=== PATIENT | male | born 1950 | race African-American/Black ===

== ENCOUNTER 2022-02-10 18:24 | Inpatient (IN) | payer OTHER ==
[~2022-02-10] VITALS: Ht 175.3 cm; Wt 129.3 kg
[2022-02-10 22:36] LABS: HEMATOCRIT. 30.9 % (42.0-52.0); HEMOGLOBIN. 10.5 g/dL (14.0-18.0); MEAN CORPUSCULAR HEMOGLOBIN 30.4 pg (28.0-32.0); MEAN CORPUSCULAR VOLUME 89.8 fL (80.0-94.0); MEAN PLATELET VOLUME 10.4 fl (7.4-10.4); PLATELET 199 x1000/uL (130-400); RED BLOOD CELL COUNT 3.44 mill/uL (4.7-6.1); RED CELL DISTRIBUTION WIDTH 17.8 % (11.6-14.6)
[2022-02-10 22:43] LABS: CHLORIDE 103 mEq/L (98-107)
[2022-02-10 23:57] LABS: INR 2.4; PARTIAL THROMBOPLASTIN TIME 42.8 sec (23.4-31.0); PROTHROMBIN TIME 23.9 sec (9.6-11.0)
[2022-02-11] MEDS ORDERED: SODIUM CHLORIDE 0.9% 500 ML IV ONE
[2022-02-11] MEDS ORDERED: SODIUM CHLORIDE 0.9% 1,000 ML IV SCH (00:15)
[2022-02-11] MEDS ORDERED: MAGNESIUM/ALUMINUM HYDROXIDE/SIMETHICONE 30ML UDC PO PRN (00:15)
[2022-02-11] MEDS ORDERED: DOCUSATE SODIUM 100MG CAPSULE PO PRN (00:15)
[2022-02-11] MEDS ORDERED: TRAMADOL 50MG TABLET PO PRN (00:15)
[2022-02-11] MEDS ORDERED: GUAIFENESIN 200MG/10ML SUGAR FREE UDC PO PRN (00:15)
[2022-02-11 00:34] LABS: PLATELET ESTIMATE NORMAL
[2022-02-11] MEDS ORDERED: PIPERACILLIN/TAZ 3.375G PREMIX 50 ML IV NR (01:00)
[2022-02-11] MEDS ORDERED: VANCOMYCIN 1G PREMIX 200 ML IV NR (01:00)
[2022-02-11 05:00] VITALS: BP 92/50
[2022-02-11] MEDS ORDERED: DEXTROSE 50% WATER 50ML SYRINGE IV PRN (06:00)
[2022-02-11] MEDS: BLOOD SUGAR DIAGNOSTIC STRIP TEST SCH ×4 (06:40→20:29)
[2022-02-11] MEDS: INSULIN LISPRO 100 UNITS/ML SUBCUT SCH ×4 (07:50→20:55)
[2022-02-11 08:00] VITALS: BP_SYST 116; BP_DIAS 55; BP_DIAS 58
[2022-02-11 08:27] LABS: CLARITY URINE CLOUDY (CLEAR); COLOR URINE DARK YELLOW (YELLOW); KETONES URINE NEGATIVE (NEGATIVE); LEUKOCYTE ESTERASE URINE NEGATIVE (NEGATIVE); NITRITE URINE NEGATIVE (NEGATIVE); OCCULT BLOOD URINE NEGATIVE (NEGATIVE); PH URINE 5.5 (4.5-8.0); PROTEIN URINE 1+ (NEGATIVE); SPECIFIC GRAVITY URINE 1.036 (1.005-1.030); UROBILINOGEN URINE 0.2 E.U./dL (0.2-1.0)
[2022-02-11] MEDS: AMLODIPINE 10MG TABLET PO SCH (09:13)
[2022-02-11] MEDS: ENOXAPARIN 40MG/0.4ML SYR SUBCUT SCH (09:14)
[2022-02-11] MEDS ORDERED: NALOXONE HCL 0.4MG/ML VIAL IV PRN (10:45)
[2022-02-11 12:00] VITALS: BP 111/49
[2022-02-11] MEDS: TAMSULOSIN HCL 0.4MG SR CAPSULE PO SCH (12:25)
[2022-02-11] MEDS: SODIUM BICARBONATE 100 MEQ in DEXTROSE 5% WATER 1,000 ML IV SCH (14:17)
[2022-02-11 16:30] VITALS: BP 117/46
[2022-02-11 17:02] LABS: TOTAL IRON BINDING CAPACITY 143 ug/dL (250-450)
[2022-02-11 17:21] LABS: PROSTRATE SPECIFIC AG TOTAL 24.78 ng/mL (0.0-4.0)
[2022-02-11 17:30] LABS: VITAMIN B12 SERUM >2000 pg/mL pg/mL (211-911)
[2022-02-11 17:42] LABS: CARCINO EMBRYONIC ANTIGEN 1311.4 ng/ml; FERRITIN 4690 ng/mL (22-322)
[2022-02-11 18:32] LABS: CREATINE KINASE 354 IU/L (39-308)
[2022-02-11 20:00] VITALS: BP 105/61
[2022-02-12] VITALS (13 sets, daily range): BP systolic 92–112; BP diastolic 38–56
[2022-02-12] MEDS: ONDANSETRON HCL 4MG/2ML INJ IV PRN (04:19)
[2022-02-12] MEDS: SODIUM BICARBONATE 100 MEQ in DEXTROSE 5% WATER 1,000 ML IV SCH ×2 (04:50→23:54)
[2022-02-12] MEDS: BLOOD SUGAR DIAGNOSTIC STRIP TEST SCH ×4 (06:31→20:12)
[2022-02-12 07:42] LABS: CHLORIDE 98 mEq/L (98-107)
[2022-02-12 07:45] LABS: HEMOGLOBIN. 9.6 g/dL (14.0-18.0); MEAN CORPUSCULAR HEMOGLOBIN 30.1 pg (28.0-32.0); MEAN CORPUSCULAR VOLUME 90.6 fL (80.0-94.0); MEAN PLATELET VOLUME 10.1 fl (7.4-10.4); PLATELET 208 x1000/uL (130-400); RED CELL DISTRIBUTION WIDTH 17.6 % (11.6-14.6)
[2022-02-12] MEDS: INSULIN LISPRO 100 UNITS/ML SUBCUT SCH ×4 (07:50→20:13)
[2022-02-12 07:55] LABS: HDL CHOLESTEROL 8 mg/dL (40-59); LDL CHOLESTEROL 41 mg/dL (5-100)
[2022-02-12] MEDS ORDERED: LORAZEPAM 2MG/ML CPJ IV PRN (09:00)
[2022-02-12] MEDS: TAMSULOSIN HCL 0.4MG SR CAPSULE PO SCH (09:00)
[2022-02-12] MEDS: AMLODIPINE 10MG TABLET PO SCH (09:00)
[2022-02-12] MEDS ORDERED: PHYTONADIONE 10MG/ML AMP SUBCUT NR ×2 (09:15→19:44)
[2022-02-12] MEDS: ENOXAPARIN 40MG/0.4ML SYR SUBCUT SCH (10:33)
[2022-02-12 12:06] LABS: HEPATITIS B SURFACE ANTIGEN NEGATIVE
[2022-02-12] MEDS ORDERED: LIDOCAINE HCL/PF 1% 10 MG/ML 5ML VIAL ONE (13:14)
[2022-02-12 14:53] LABS: PROTHROMBIN TIME 45.5 sec (9.6-11.0)
[2022-02-12 16:00] LABS: INR 4.8
[2022-02-12] MEDS ORDERED: PANTOT AC/MIN OIL/PET HY-PHL OINT (AQUAPHOR) TOP SCH (21:45)
[2022-02-13] VITALS (13 sets, daily range): BP systolic 103–128; BP diastolic 48–69
[2022-02-13 03:38] LABS: PROTHROMBIN TIME 20.8 sec (9.6-11.0)
[2022-02-13] MEDS: BLOOD SUGAR DIAGNOSTIC STRIP TEST SCH ×4 (06:25→21:46)
[2022-02-13] MEDS: INSULIN LISPRO 100 UNITS/ML SUBCUT SCH ×4 (07:50→21:00)
[2022-02-13 08:12] LABS: HEMATOCRIT. 28.7 % (42.0-52.0); HEMOGLOBIN. 9.7 g/dL (14.0-18.0); MEAN CORPUSCULAR HEMOGLOBIN 30.6 pg (28.0-32.0); MEAN CORPUSCULAR VOLUME 90.6 fL (80.0-94.0); MEAN PLATELET VOLUME 10.1 fl (7.4-10.4); PLATELET 206 x1000/uL (130-400); RED BLOOD CELL COUNT 3.17 mill/uL (4.7-6.1); RED CELL DISTRIBUTION WIDTH 17.7 % (11.6-14.6)
[2022-02-13] MEDS ORDERED: PHYTONADIONE 10MG/ML AMP SUBCUT NR ×2 (09:00)
[2022-02-13] MEDS: TAMSULOSIN HCL 0.4MG SR CAPSULE PO SCH (10:21)
[2022-02-13] MEDS: AMLODIPINE 10MG TABLET PO SCH (10:21)
[2022-02-13] MEDS: PHYTONADIONE 10MG/ML AMP SUBCUT SCH (10:22)
[2022-02-13] MEDS: GUAIFENESIN 600MG ER TABLET PO SCH ×2 (10:22→22:32)
[2022-02-13] MEDS: PANTOT AC/MIN OIL/PET HY-PHL OINT (AQUAPHOR) TOP SCH ×2 (10:38→16:24)
[2022-02-13 11:02] LABS: PLATELET ESTIMATE NORMAL
[2022-02-13] MEDS ORDERED: SODIUM POLYSTYRENE SULFONATE 15 G/60 ML BOT PO NR (21:45)
[2022-02-14] VITALS (8 sets, daily range): BP systolic 94–114; BP diastolic 50–65
[2022-02-14] MEDS: INSULIN LISPRO 100 UNITS/ML SUBCUT SCH ×4 (06:55→21:00)
[2022-02-14] MEDS: BLOOD SUGAR DIAGNOSTIC STRIP TEST SCH ×4 (06:55→21:12)
[2022-02-14 07:55] LABS: PLATELET ESTIMATE NORMAL
[2022-02-14] MEDS: TAMSULOSIN HCL 0.4MG SR CAPSULE PO SCH (09:25)
[2022-02-14] MEDS: AMLODIPINE 10MG TABLET PO SCH (09:25)
[2022-02-14] MEDS: PHYTONADIONE 10MG/ML AMP SUBCUT SCH (09:26)
[2022-02-14] MEDS: GUAIFENESIN 600MG ER TABLET PO SCH ×2 (09:26→21:13)
[2022-02-14] MEDS: PANTOT AC/MIN OIL/PET HY-PHL OINT (AQUAPHOR) TOP SCH ×2 (09:32→16:42)
[2022-02-14 11:42] LABS: HEMATOCRIT. 29.8 % (42.0-52.0); HEMOGLOBIN. 10.2 g/dL (14.0-18.0); MEAN CORPUSCULAR HEMOGLOBIN 30.7 pg (28.0-32.0); MEAN CORPUSCULAR VOLUME 89.4 fL (80.0-94.0); MEAN PLATELET VOLUME 9.9 fl (7.4-10.4); PLATELET 195 x1000/uL (130-400); RED BLOOD CELL COUNT 3.34 mill/uL (4.7-6.1); RED CELL DISTRIBUTION WIDTH 17.7 % (11.6-14.6)
[2022-02-14] MEDS: SODIUM BICARBONATE 100 MEQ in DEXTROSE 5% WATER 1,000 ML IV SCH (13:08)
[2022-02-14 15:37] LABS: NUCLEATED RED BLOOD CELLS 2 /100 WBC
[2022-02-14 15:38] LABS: PLATELET ESTIMATE NORMAL
[2022-02-15] VITALS (38 sets, daily range): BP systolic 63–173; BP diastolic 28–87
[2022-02-15] MEDS: BLOOD SUGAR DIAGNOSTIC STRIP TEST SCH ×4 (06:35→21:00)
[2022-02-15] MEDS: INSULIN LISPRO 100 UNITS/ML SUBCUT SCH ×4 (06:53→21:00)
[2022-02-15 07:48] LABS: BASOPHILS % 0.2 % (0.0-2.0); EOSINOPHILS % 0.1 % (0.0-5.0); HEMATOCRIT. 24.9 % (42.0-52.0); HEMOGLOBIN. 8.4 g/dL (14.0-18.0); LYMPHOCYTES % 21.5 % (20.0-50.0); MEAN CORPUSCULAR HEMOGLOBIN 31.1 pg (28.0-32.0); MEAN CORPUSCULAR VOLUME 92.6 fL (80.0-94.0); MEAN PLATELET VOLUME 10.2 fl (7.4-10.4); MONOCYTES % 6.5 % (2.0-8.0); NEUTROPHILS % 71.7 % (40.0-76.0); PLATELET 201 x1000/uL (130-400); RED BLOOD CELL COUNT 2.69 mill/uL (4.7-6.1); RED CELL DISTRIBUTION WIDTH 18.5 % (11.6-14.6)
[2022-02-15] MEDS: AMLODIPINE 10MG TABLET PO SCH (09:00)
[2022-02-15] MEDS: SODIUM BICARBONATE 100 MEQ in DEXTROSE 5% WATER 1,000 ML IV SCH (09:12)
[2022-02-15] MEDS: PHYTONADIONE 10MG/ML AMP SUBCUT SCH (09:13)
[2022-02-15] MEDS: TAMSULOSIN HCL 0.4MG SR CAPSULE PO SCH (09:13)
[2022-02-15] MEDS: GUAIFENESIN 600MG ER TABLET PO SCH ×2 (09:14→22:14)
[2022-02-15] MEDS: PANTOT AC/MIN OIL/PET HY-PHL OINT (AQUAPHOR) TOP SCH ×2 (09:14→17:00)
[2022-02-15] MEDS ORDERED: NOREPINEPHRINE 8 MG in DEXT 5% WATER 242 ML IV PRN (15:00)
[2022-02-15 15:20] LABS: BG BASE EXCESS -6.6 mmol/L (-2.0-2.0); BG CARBOXYHEMOGLOBIN 2.1 % (0.5-1.5); BG FRACTION INSPIRED OXYGEN 44; BG HCO3 ACT 21.6 mmol/L (22.0-26.0); BG OXYGEN SATURATION 79.6 % (92.0-98.5); BG OXYHEMOGLOBIN 77.9 % (94.0-97.0); BG PH 7.204 (7.350-7.450); BG PO2 55.5 mmHg (75.0-100.0); BG SAMPLE SITE LEFT BRACHIAL; BG TOTAL HEMOGLOBIN 10.9 g/dL (12.0-18.0); BG VENT MODE NASAL CANNULA
[2022-02-15] MEDS: NOREPINEPHRINE 32 MG in DEXT 5% WATER 218 ML IV PRN (16:05)
[2022-02-15] MEDS ORDERED: FENTANYL 2500MCG/250ML PMX 250 ML IV ONE (17:15)
[2022-02-15] MEDS ORDERED: MIDAZOLAM HCL 100 MG in SODIUM CHLORIDE 0.9% 100 ML IV PRN (17:15)
[2022-02-15] MEDS ORDERED: MIDAZOLAM 100MG/100ML PMX 100 ML IV PRN (17:15)
[2022-02-15 17:25] LABS: BG BASE EXCESS -7.2 mmol/L (-2.0-2.0); BG CARBOXYHEMOGLOBIN 1.6 % (0.5-1.5); BG HCO3 ACT 18.7 mmol/L (22.0-26.0); BG METHEMOGLOBIN 0.2 % (0.0-1.5); BG OXYGEN SATURATION 93.9 % (92.0-98.5); BG OXYHEMOGLOBIN 92.2 % (94.0-97.0); BG PCO2 38.9 mmHg (35.0-45.0); BG PH 7.299 (7.350-7.450); BG PO2 78.8 mmHg (75.0-100.0); BG SAMPLE SITE ALINE; BG TOTAL HEMOGLOBIN 11.2 g/dL (12.0-18.0); BG VENT MODE VENT - AC
[2022-02-15] MEDS: DEXAMETHASONE 4MG/ML 1ML VIAL IV SCH (18:17)
[2022-02-15] MEDS: LACTULOSE 20G/30ML UDC PO SCH (22:14)
[2022-02-15] MEDS: PIPERACILLIN/TAZOBACTAM 3.375 G in DEXTROSE 5% WATER 50 ML IV SCH (22:14)
[2022-02-15] MEDS: FENTANYL CITRATE 2,500 MCG in SODIUM CHLORIDE 0.9% 200 ML IV PRN (22:16)
[2022-02-16] VITALS (97 sets, daily range): BP systolic 69–198; BP diastolic 39–129
[2022-02-16 05:03] LABS: HEMOGLOBIN. 10.4 g/dL (14.0-18.0); MEAN CORPUSCULAR HEMOGLOBIN 30.4 pg (28.0-32.0); MEAN CORPUSCULAR VOLUME 90.6 fL (80.0-94.0); PLATELET 184 x1000/uL (130-400); RED BLOOD CELL COUNT 3.42 mill/uL (4.7-6.1); RED CELL DISTRIBUTION WIDTH 17.8 % (11.6-14.6)
[2022-02-16] MEDS: BLOOD SUGAR DIAGNOSTIC STRIP TEST SCH ×4 (06:21→21:00)
[2022-02-16] MEDS: LACTULOSE 20G/30ML UDC PO SCH (06:30)
[2022-02-16] MEDS: SODIUM BICARBONATE 100 MEQ in DEXTROSE 5% WATER 1,000 ML IV SCH ×2 (06:30→21:22)
[2022-02-16] MEDS: INSULIN LISPRO 100 UNITS/ML SUBCUT SCH ×4 (06:31→21:00)
[2022-02-16 08:03] LABS: BG BASE EXCESS -5.5 mmol/L (-2.0-2.0); BG HCO3 ACT 19.7 mmol/L (22.0-26.0); BG METHEMOGLOBIN 0.1 % (0.0-1.5); BG OXYHEMOGLOBIN 94.9 % (94.0-97.0); BG PCO2 37.6 mmHg (35.0-45.0); BG PH 7.338 (7.350-7.450); BG PO2 88.3 mmHg (75.0-100.0); BG SAMPLE SITE ALINE; BG TOTAL HEMOGLOBIN 10.8 g/dL (12.0-18.0); BG VENT MODE VENT - AC
[2022-02-16] MEDS: AMLODIPINE 10MG TABLET PO SCH (08:15)
[2022-02-16] MEDS: TAMSULOSIN HCL 0.4MG SR CAPSULE PO SCH (08:47)
[2022-02-16] MEDS: PIPERACILLIN/TAZOBACTAM 3.375 G in DEXTROSE 5% WATER 50 ML IV SCH ×2 (08:48→21:22)
[2022-02-16] MEDS: DEXAMETHASONE 4MG/ML 1ML VIAL IV SCH (09:06)
[2022-02-16 13:24] LABS: PLATELET ESTIMATE NORMAL
[2022-02-16] MEDS ORDERED: ACETYLCYSTEINE 100MG/ML 10% VIAL 4ML INH SCH (14:00)
[2022-02-16] MEDS: PANTOT AC/MIN OIL/PET HY-PHL OINT (AQUAPHOR) TOP SCH (17:00)
[2022-02-16] MEDS: NOREPINEPHRINE 32 MG in DEXT 5% WATER 218 ML IV PRN (19:13)
[2022-02-16] MEDS: FENTANYL CITRATE 2,500 MCG in SODIUM CHLORIDE 0.9% 200 ML IV PRN (19:14)
[2022-02-17] VITALS (94 sets, daily range): BP systolic 59–224; BP diastolic 33–90
[2022-02-17 06:41] LABS: HEMATOCRIT 29.9 % (42.0-52.0); HEMOGLOBIN 10.2 g/dL (14.0-18.0); MEAN CORPUSCULAR VOLUME 91.1 fL (80.0-94.0); PLATELET 147 x1000/uL (130-400); RED BLOOD CELL COUNT 3.29 mill/uL (4.7-6.1); RED CELL DISTRIBUTION WIDTH 17.6 % (11.6-14.6)
[2022-02-17] MEDS: BLOOD SUGAR DIAGNOSTIC STRIP TEST SCH ×4 (07:00→23:50)
[2022-02-17] MEDS: INSULIN LISPRO 100 UNITS/ML SUBCUT SCH ×3 (07:00→18:00)
[2022-02-17 08:50] LABS: BG CARBOXYHEMOGLOBIN 1.3 % (0.5-1.5); BG DEOXYHEMOGLOBIN 4.7 % (0.0-5.0); BG FRACTION INSPIRED OXYGEN 80; BG HCO3 ACT 16.4 mmol/L (22.0-26.0); BG METHEMOGLOBIN 0.1 % (0.0-1.5); BG OXYGEN SATURATION 95.2 % (92.0-98.5); BG OXYHEMOGLOBIN 93.9 % (94.0-97.0); BG PCO2 33.6 mmHg (35.0-45.0); BG PH 7.306 (7.350-7.450); BG PO2 81.2 mmHg (75.0-100.0); BG SAMPLE SITE ALINE; BG TOTAL HEMOGLOBIN 11.3 g/dL (12.0-18.0); BG VENT MODE VENT - AC
[2022-02-17] MEDS: TAMSULOSIN HCL 0.4MG SR CAPSULE PO SCH (09:00)
[2022-02-17] MEDS: DEXAMETHASONE 4MG/ML 1ML VIAL IV SCH (09:00)
[2022-02-17] MEDS: AMLODIPINE 10MG TABLET PO SCH (09:00)
[2022-02-17] MEDS: PANTOT AC/MIN OIL/PET HY-PHL OINT (AQUAPHOR) TOP SCH ×2 (09:00→17:00)
[2022-02-17] MEDS: PIPERACILLIN/TAZOBACTAM 3.375 G in DEXTROSE 5% WATER 50 ML IV SCH ×2 (09:00→20:55)
[2022-02-17 09:09] LABS: ANTI-NUCLEAR ANTIBODIES DIRECT Negative (Negative)
[2022-02-17] MEDS: NOREPINEPHRINE 32 MG in DEXT 5% WATER 218 ML IV PRN ×2 (10:00→15:56)
[2022-02-17] MEDS: FENTANYL CITRATE 2,500 MCG in SODIUM CHLORIDE 0.9% 200 ML IV PRN (13:26)
[2022-02-17 13:46] LABS: BG BASE EXCESS -8.2 mmol/L (-2.0-2.0); BG CARBOXYHEMOGLOBIN 0.4 % (0.5-1.5); BG DEOXYHEMOGLOBIN 3.7 % (0.0-5.0); BG FRACTION INSPIRED OXYGEN 100; BG METHEMOGLOBIN 0.5 % (0.0-1.5); BG OXYGEN SATURATION 96.3 % (92.0-98.5); BG OXYHEMOGLOBIN 95.4 % (94.0-97.0); BG PCO2 33.9 mmHg (35.0-45.0); BG PH 7.318 (7.350-7.450); BG PO2 89.8 mmHg (75.0-100.0); BG SAMPLE SITE ALINE; BG TOTAL HEMOGLOBIN 11.4 g/dL (12.0-18.0); BG VENT MODE VENT - AC
[2022-02-17] MEDS ORDERED: SODIUM BICARBONATE 8.4% 1 MEQ/ML 50ML SYR IV NR (14:15)
[2022-02-17] MEDS: SODIUM BICARBONATE 100 MEQ in DEXTROSE 5% WATER 1,000 ML IV SCH (18:23)
[2022-02-17] MEDS ORDERED: PANTOPRAZOLE SODIUM 40 MG/VIAL IV NR (22:00)
[2022-02-17] MEDS ORDERED: PANTOPRAZOLE SODIUM 40 MG/VIAL IV ONE (22:00)
[2022-02-18] VITALS (91 sets, daily range): BP systolic 57–178; BP diastolic 40–111
[2022-02-18] MEDS: ACETYLCYSTEINE 200MG/ML 20% VIAL 4ML INH SCH ×3 (00:22→16:14)
[2022-02-18] MEDS: IPRATROPIUM/ALBUTEROL 0.5-3(2.5)MG/3ML NEB HHN PRN ×2 (00:22→16:14)
[2022-02-18] MEDS: INSULIN LISPRO 100 UNITS/ML SUBCUT SCH ×4 (00:25→18:29)
[2022-02-18] MEDS: NOREPINEPHRINE 32 MG in DEXT 5% WATER 218 ML IV PRN ×3 (03:15→21:39)
[2022-02-18] MEDS: BLOOD SUGAR DIAGNOSTIC STRIP TEST SCH ×3 (05:49→18:00)
[2022-02-18 07:33] LABS: BG CARBOXYHEMOGLOBIN 0.5 % (0.5-1.5); BG DEOXYHEMOGLOBIN 2.9 % (0.0-5.0); BG HCO3 ACT 17.5 mmol/L (22.0-26.0); BG METHEMOGLOBIN 0.2 % (0.0-1.5); BG OXYGEN SATURATION 97.1 % (92.0-98.5); BG OXYHEMOGLOBIN 96.4 % (94.0-97.0); BG PH 7.355 (7.350-7.450); BG PO2 100.3 mmHg (75.0-100.0); BG SAMPLE SITE ALINE; BG VENT MODE VENT - AC
[2022-02-18 07:56] LABS: HEMATOCRIT. 32.7 % (42.0-52.0); MEAN CORPUSCULAR HEMOGLOBIN 30.7 pg (28.0-32.0); MEAN CORPUSCULAR VOLUME 91.4 fL (80.0-94.0); MEAN PLATELET VOLUME 10.6 fl (7.4-10.4); PLATELET 158 x1000/uL (130-400); RED BLOOD CELL COUNT 3.58 mill/uL (4.7-6.1); RED CELL DISTRIBUTION WIDTH 17.8 % (11.6-14.6)
[2022-02-18] MEDS ORDERED: PHENYLEPHRINE 100 MG in DEXT 5% WATER 240 ML IV PRN (08:00)
[2022-02-18] MEDS: DEXAMETHASONE 4MG/ML 1ML VIAL IV SCH (08:19)
[2022-02-18] MEDS: CITRIC ACID/SODIUM CITRATE SOLN 30ML UDC PO SCH ×3 (08:20→16:38)
[2022-02-18] MEDS: PIPERACILLIN/TAZOBACTAM 3.375 G in DEXTROSE 5% WATER 50 ML IV SCH ×2 (08:20→20:42)
[2022-02-18] MEDS: TAMSULOSIN HCL 0.4MG SR CAPSULE PO SCH (08:21)
[2022-02-18] MEDS: PANTOPRAZOLE SODIUM 40 MG/VIAL IV SCH (08:21)
[2022-02-18] MEDS: FOLIC ACID/VITAMIN B COMP W-C TABLET NG SCH (08:24)
[2022-02-18] MEDS: PANTOT AC/MIN OIL/PET HY-PHL OINT (AQUAPHOR) TOP SCH ×2 (08:24→17:05)
[2022-02-18] MEDS: AMLODIPINE 10MG TABLET PO SCH (09:00)
[2022-02-18 09:32] LABS: PLATELET ESTIMATE NORMAL
[2022-02-18] MEDS: MIDODRINE HCL 5MG TABLET PO SCH ×3 (15:43→17:32)
[2022-02-18] MEDS: FENTANYL CITRATE 2,500 MCG in SODIUM CHLORIDE 0.9% 200 ML IV PRN (21:40)
[2022-02-19] VITALS (96 sets, daily range): BP systolic 53–166; BP diastolic 30–181
[2022-02-19] MEDS: BLOOD SUGAR DIAGNOSTIC STRIP TEST SCH ×4 (00:53→17:26)
[2022-02-19] MEDS: IPRATROPIUM/ALBUTEROL 0.5-3(2.5)MG/3ML NEB HHN PRN ×4 (01:05→23:44)
[2022-02-19] MEDS: ACETYLCYSTEINE 200MG/ML 20% VIAL 4ML INH SCH ×4 (01:05→23:44)
[2022-02-19] MEDS: INSULIN LISPRO 100 UNITS/ML SUBCUT SCH ×4 (05:41→17:28)
[2022-02-19 07:57] LABS: BG BASE EXCESS -13.3 mmol/L (-2.0-2.0); BG CARBOXYHEMOGLOBIN 0.3 % (0.5-1.5); BG DEOXYHEMOGLOBIN 9.9 % (0.0-5.0); BG FRACTION INSPIRED OXYGEN 75; BG HCO3 ACT 12.3 mmol/L (22.0-26.0); BG METHEMOGLOBIN 0.1 % (0.0-1.5); BG OXYGEN SATURATION 90.1 % (92.0-98.5); BG OXYHEMOGLOBIN 89.7 % (94.0-97.0); BG PCO2 28.2 mmHg (35.0-45.0); BG PH 7.258 (7.350-7.450); BG PO2 71.9 mmHg (75.0-100.0); BG SAMPLE SITE ALINE; BG TOTAL HEMOGLOBIN 11.6 g/dL (12.0-18.0); BG VENT MODE VENT - AC
[2022-02-19 08:05] LABS: HEMATOCRIT. 32.8 % (42.0-52.0); HEMOGLOBIN. 10.7 g/dL (14.0-18.0); MEAN CORPUSCULAR VOLUME 91.4 fL (80.0-94.0); MEAN PLATELET VOLUME 10.1 fl (7.4-10.4); PLATELET 145 x1000/uL (130-400); RED BLOOD CELL COUNT 3.58 mill/uL (4.7-6.1); RED CELL DISTRIBUTION WIDTH 18.3 % (11.6-14.6)
[2022-02-19] MEDS: AMLODIPINE 10MG TABLET PO SCH (08:23)
[2022-02-19] MEDS: TAMSULOSIN HCL 0.4MG SR CAPSULE PO SCH (08:35)
[2022-02-19] MEDS: CITRIC ACID/SODIUM CITRATE SOLN 30ML UDC PO SCH ×3 (08:35→17:17)
[2022-02-19] MEDS: FOLIC ACID/VITAMIN B COMP W-C TABLET NG SCH (08:35)
[2022-02-19] MEDS: MIDODRINE HCL 5MG TABLET PO SCH ×3 (08:36→17:16)
[2022-02-19] MEDS: DEXAMETHASONE 4MG/ML 1ML VIAL IV SCH (08:36)
[2022-02-19] MEDS: PANTOPRAZOLE SODIUM 40 MG/VIAL IV SCH (08:36)
[2022-02-19] MEDS: PIPERACILLIN/TAZOBACTAM 3.375 G in DEXTROSE 5% WATER 50 ML IV SCH ×2 (08:37→21:15)
[2022-02-19] MEDS: PANTOT AC/MIN OIL/PET HY-PHL OINT (AQUAPHOR) TOP SCH ×2 (08:37→17:16)
[2022-02-19] MEDS: NOREPINEPHRINE 32 MG in DEXT 5% WATER 218 ML IV PRN ×2 (11:02→21:22)
[2022-02-19 14:09] LABS: PLATELET ESTIMATE NORMAL
[2022-02-19] MEDS: ONDANSETRON HCL 4MG/2ML INJ IV PRN (21:22)
[2022-02-20] VITALS (99 sets, daily range): BP systolic 59–153; BP diastolic 25–76
[2022-02-20] MEDS: NOREPINEPHRINE 32 MG in DEXT 5% WATER 218 ML IV PRN ×4 (01:24→22:08)
[2022-02-20 05:56] LABS: HEMATOCRIT. 33.9 % (42.0-52.0); HEMOGLOBIN. 10.7 g/dL (14.0-18.0); MEAN CORPUSCULAR HEMOGLOBIN 30.5 pg (28.0-32.0); MEAN CORPUSCULAR VOLUME 96.9 fL (80.0-94.0); MEAN PLATELET VOLUME 10.2 fl (7.4-10.4); PLATELET 156 x1000/uL (130-400); RED CELL DISTRIBUTION WIDTH 19.6 % (11.6-14.6)
[2022-02-20] MEDS: BLOOD SUGAR DIAGNOSTIC STRIP TEST SCH ×4 (06:00→17:18)
[2022-02-20] MEDS: INSULIN LISPRO 100 UNITS/ML SUBCUT SCH ×4 (06:00→17:26)
[2022-02-20] MEDS ORDERED: SODIUM POLYSTYRENE SULFONATE 15 G/60 ML BOT PO NR (07:45)
[2022-02-20] MEDS ORDERED: DEXTROSE 50% WATER 50ML SYRINGE IV NR ×2 (07:52→22:15)
[2022-02-20] MEDS ORDERED: SODIUM BICARBONATE 8.4% 1 MEQ/ML 50ML SYR IV NR ×3 (07:52→22:15)
[2022-02-20] MEDS ORDERED: INSULIN REGULAR (HUMULIN R) 300UNITS/3ML VIAL IV NR ×2 (07:53→22:15)
[2022-02-20] MEDS: ACETYLCYSTEINE 200MG/ML 20% VIAL 4ML INH SCH ×2 (07:59→16:37)
[2022-02-20] MEDS: IPRATROPIUM/ALBUTEROL 0.5-3(2.5)MG/3ML NEB HHN PRN ×2 (08:00→16:37)
[2022-02-20] MEDS: PANTOPRAZOLE SODIUM 40 MG/VIAL IV SCH (08:12)
[2022-02-20] MEDS: FOLIC ACID/VITAMIN B COMP W-C TABLET NG SCH (08:12)
[2022-02-20] MEDS: DEXAMETHASONE 4MG/ML 1ML VIAL IV SCH (08:12)
[2022-02-20] MEDS: CITRIC ACID/SODIUM CITRATE SOLN 30ML UDC PO SCH ×3 (08:12→17:22)
[2022-02-20] MEDS: TAMSULOSIN HCL 0.4MG SR CAPSULE PO SCH (08:13)
[2022-02-20 08:19] LABS: BG BASE EXCESS -18.5 mmol/L (-2.0-2.0); BG CARBOXYHEMOGLOBIN 0.6 % (0.5-1.5); BG DEOXYHEMOGLOBIN 14.6 % (0.0-5.0); BG HCO3 ACT 10.5 mmol/L (22.0-26.0); BG METHEMOGLOBIN 0.3 % (0.0-1.5); BG OXYGEN SATURATION 85.3 % (92.0-98.5); BG OXYHEMOGLOBIN 84.5 % (94.0-97.0); BG PCO2 36.2 mmHg (35.0-45.0); BG PO2 67.6 mmHg (75.0-100.0); BG SAMPLE SITE ALINE; BG TOTAL HEMOGLOBIN 11.8 g/dL (12.0-18.0); BG VENT MODE VENT - AC
[2022-02-20] MEDS: AMLODIPINE 10MG TABLET PO SCH (08:30)
[2022-02-20] MEDS: PANTOT AC/MIN OIL/PET HY-PHL OINT (AQUAPHOR) TOP SCH ×2 (08:31→17:23)
[2022-02-20] MEDS: MIDODRINE HCL 5MG TABLET PO SCH ×3 (08:31→17:23)
[2022-02-20] MEDS: PIPERACILLIN/TAZOBACTAM 3.375 G in DEXTROSE 5% WATER 50 ML IV SCH (08:32)
[2022-02-20 08:50] LABS: BG FRACTION INSPIRED OXYGEN 100
[2022-02-20] MEDS ORDERED: SODIUM BICARBONATE 150 MEQ in DEXTROSE 5% WATER 1,000 ML IV SCH (09:00)
[2022-02-20] MEDS ORDERED: CALCIUM CHLORIDE 1,000 MG in DEXT 5% WATER 90 ML IV NR ×2 (09:00→23:00)
[2022-02-20] MEDS: VASOPRESSIN 20 UNIT in SODIUM CHLORIDE 0.9% 99 ML IV PRN ×2 (09:19→18:36)
[2022-02-20 11:27] LABS: BG BASE EXCESS -15.9 mmol/L (-2.0-2.0); BG CARBOXYHEMOGLOBIN 0.3 % (0.5-1.5); BG DEOXYHEMOGLOBIN 15.1 % (0.0-5.0); BG FRACTION INSPIRED OXYGEN 100; BG HCO3 ACT 11.9 mmol/L (22.0-26.0); BG METHEMOGLOBIN 0.3 % (0.0-1.5); BG OXYGEN SATURATION 84.8 % (92.0-98.5); BG OXYHEMOGLOBIN 84.3 % (94.0-97.0); BG PH 7.151 (7.350-7.450); BG PO2 62.9 mmHg (75.0-100.0); BG SAMPLE SITE ALINE; BG TOTAL HEMOGLOBIN 12.2 g/dL (12.0-18.0); BG VENT MODE VENT - AC
[2022-02-20 12:22] LABS: INR 2.3; PROTHROMBIN TIME 23.6 sec (9.6-11.0)
[2022-02-20] MEDS: VANCOMYCIN 1000MG/20ML ORAL SOLN PO SCH ×2 (13:00→17:22)
[2022-02-20 14:22] LABS: NUCLEATED RED BLOOD CELLS 1 /100 WBC; PLATELET ESTIMATE NORMAL
[2022-02-21] VITALS (29 sets, daily range): BP systolic 42–135; BP diastolic 17–67
[2022-02-21] MEDS ORDERED: FENTANYL CITRATE/PF 2,500 MCG in SODIUM CHLORIDE 0.9% 200 ML IV PRN (00:30)
[2022-02-21] MEDS ORDERED: FENTANYL 2500MCG/250ML PMX 250 ML IV PRN (00:30)
[2022-02-21] MEDS: BLOOD SUGAR DIAGNOSTIC STRIP TEST SCH ×2 (00:46→06:10)
[2022-02-21] MEDS: VANCOMYCIN 1000MG/20ML ORAL SOLN PO SCH (00:50)
[2022-02-21] MEDS: FENTANYL CITRATE 2,500 MCG in SODIUM CHLORIDE 0.9% 200 ML IV PRN (00:51)
[2022-02-21] MEDS: INSULIN LISPRO 100 UNITS/ML SUBCUT SCH ×2 (00:52→06:00)
[2022-02-21] MEDS: IPRATROPIUM/ALBUTEROL 0.5-3(2.5)MG/3ML NEB HHN PRN (02:14)
[2022-02-21] MEDS: ACETYLCYSTEINE 200MG/ML 20% VIAL 4ML INH SCH (02:14)
[2022-02-21 03:47] LABS: HEMATOCRIT. 34.6 % (42.0-52.0); HEMOGLOBIN. 10.4 g/dL (14.0-18.0); MEAN CORPUSCULAR HEMOGLOBIN 30.5 pg (28.0-32.0); MEAN CORPUSCULAR VOLUME 100.9 fL (80.0-94.0); MEAN PLATELET VOLUME 10.7 fl (7.4-10.4); PLATELET 154 x1000/uL (130-400); RED BLOOD CELL COUNT 3.43 mill/uL (4.7-6.1); RED CELL DISTRIBUTION WIDTH 20.4 % (11.6-14.6)
[2022-02-21] MEDS: NOREPINEPHRINE 32 MG in DEXT 5% WATER 218 ML IV PRN (06:05)
[2022-02-21] MEDS: VASOPRESSIN 20 UNIT in SODIUM CHLORIDE 0.9% 99 ML IV PRN (06:07)
[2022-02-21] MEDS ORDERED: SODIUM BICARBONATE 8.4% 1 MEQ/ML 50ML SYR IV STA (06:33)
[2022-02-21] MEDS ORDERED: SODIUM BICARBONATE 8.4% 1 MEQ/ML 50ML SYR IV NR (06:45)
[2022-02-21 07:57] LABS: NUCLEATED RED BLOOD CELLS 7 /100 WBC; PLATELET ESTIMATE NORMAL
== END 2022-02-21 11:24 | DRG 870 ==
LOC: ER 18:28 → MICUSO 02-11 00:39 → 6WST 02-11 04:42 → 7EST 02-13 18:32 → MICUNO 02-15 14:43 → MICUSO 02-17 06:18
PROVIDERS: ADMIT Hospitalist; ATTEND Hospitalist
PROC: 02HV33Z Insertion of Infusion Device into Superior Vena Cava, Percutaneous Approach (ICD-10-PCS; 2022-02-12)
PROC: B548ZZA Ultrasonography of Superior Vena Cava, Guidance (ICD-10-PCS; 2022-02-12)
PROC: B5181ZA Fluoroscopy of Superior Vena Cava using Low Osmolar Contrast, Guidance (ICD-10-PCS; 2022-02-12)
PROC: 5A1D70Z Performance of Urinary Filtration, Intermittent, Less than 6 Hours Per Day (ICD-10-PCS; 2022-02-13)
PROC: 5A1955Z Respiratory Ventilation, Greater than 96 Consecutive Hours (ICD-10-PCS; principal; 2022-02-15)
PROC: 0BH17EZ Insertion of Endotracheal Airway into Trachea, Via Natural or Artificial Opening (ICD-10-PCS; 2022-02-15)
PROC: 03HY32Z Insertion of Monitoring Device into Upper Artery, Percutaneous Approach (ICD-10-PCS; 2022-02-15)
PROC: 5A1D70Z Performance of Urinary Filtration, Intermittent, Less than 6 Hours Per Day (ICD-10-PCS; 2022-02-15)
PROC: 30233K1 Transfusion of Nonautologous Frozen Plasma into Peripheral Vein, Percutaneous Approach (ICD-10-PCS; 2022-02-17)
PROC: 5A1D70Z Performance of Urinary Filtration, Intermittent, Less than 6 Hours Per Day (ICD-10-PCS; 2022-02-17)
PROC: 5A1D70Z Performance of Urinary Filtration, Intermittent, Less than 6 Hours Per Day (ICD-10-PCS; 2022-02-19)
PROC: 5A1D70Z Performance of Urinary Filtration, Intermittent, Less than 6 Hours Per Day (ICD-10-PCS; 2022-02-20)
PROC: 5A12012 Performance of Cardiac Output, Single, Manual (ICD-10-PCS; 2022-02-21)
DX: A41.89 Other specified sepsis (principal); U07.1 COVID-19; E43 Unspecified severe protein-calorie malnutrition; I21.4 Non-ST elevation (NSTEMI) myocardial infarction; N17.0 Acute kidney failure with tubular necrosis; K72.00 Acute and subacute hepatic failure without coma; J12.82 Pneumonia due to coronavirus disease 2019; N18.6 End stage renal disease; G92.8 Other toxic encephalopathy; J96.01 Acute respiratory failure with hypoxia; I81 Portal vein thrombosis; C78.7 Secondary malignant neoplasm of liver and intrahepatic bile duct; I12.0 Hypertensive chronic kidney disease with stage 5 chronic kidney disease or end stage renal disease; E87.1 Hypo-osmolality and hyponatremia; J91.8 Pleural effusion in other conditions classified elsewhere; D68.9 Coagulation defect, unspecified; E87.29 Other acidosis; Z68.41 Body mass index [BMI] 40.0-44.9, adult; I69.354 Hemiplegia and hemiparesis following cerebral infarction affecting left non-dominant side; E86.9 Volume depletion, unspecified; E87.5 Hyperkalemia; E11.22 Type 2 diabetes mellitus with diabetic chronic kidney disease; E78.00 Pure hypercholesterolemia, unspecified; E88.09 Other disorders of plasma-protein metabolism, not elsewhere classified; R16.0 Hepatomegaly, not elsewhere classified; K57.30 Diverticulosis of large intestine without perforation or abscess without bleeding; I51.7 Cardiomegaly; N28.1 Cyst of kidney, acquired; E78.5 Hyperlipidemia, unspecified; N40.0 Benign prostatic hyperplasia without lower urinary tract symptoms; D63.1 Anemia in chronic kidney disease; F43.10 Post-traumatic stress disorder, unspecified; I95.9 Hypotension, unspecified; C80.1 Malignant (primary) neoplasm, unspecified; J20.8 Acute bronchitis due to other specified organisms; Z99.2 Dependence on renal dialysis; Z74.01 Bed confinement status
CPT/HCPCS: 31500; 36415; 36556; 36600; 71045; 74176; 76700; 76937; 77001; 80048; 80053; 80061; 80076; 81003; 82105; 82140; 82248; 82270; 82375; 82378; 82550; 82607; 82728; 82746; 82805; 82962; 83036; 83540; 83550; 83605; 83880; 84145; 84153; 84484; 85025; 85027; 85044; 86038; 86160; 86301; 86705; 86709; 86803; 86850; 86900; 86927; 87070; 87077; 87186; 87340; 87426; 90935; 93005; 93306; 93970; 94003; 94640; 99291; A6261; C1752; C1887; C1893; C9113; C9803; J1100; J1650; J1815; J2250; J2370; J2405; J2543; J3010; J3370; J3430; J3490; J7040; J7050; J7060; J7070; J7608; P9017; A4315; G0103